=== PATIENT | female | born 1990 | race African-American/Black ===

== ENCOUNTER 2020-09-23 20:37 | Emergency (ER) | payer SELFPAY ==
[~2020-09-23] VITALS: Ht 152.4 cm; Wt 83.9 kg
--- NOTE | 2020-09-24 10:43 | EKG ---
[facility] [address] [place], [place] [address] Signed Normal sinus rhythm with sinus arrhythmia Normal ECG No previous ECGs available Confirmed by YOUSIF GRAVES DO ([id number]) on 09/24/2020 10:43:03 AM Electronically Signed By: YOUSIF GRAVES DO 09/24/20 1043 PATIENT NAME: BRIANNA MANEQUITA Electrocardiogram DATE OF : 89 PHYSICIAN: YOUSIF GRAVES DO REPORT #: [id number] REPORT IS CONFIDENTIAL AND NOT TO BE RELEASED WITHOUT AUTHORIZATION
== END 2020-09-23 23:38 | disposition home or self-care (01) ==
LOC: ED 20:37
DX: T43.612A Poisoning by caffeine, intentional self-harm, initial encounter (principal); J45.909 Unspecified asthma, uncomplicated
CPT/HCPCS: 80053; 80176; 81001; 84443; 84703; 85025; 93005; 93010; 99285-25; G0480